=== PATIENT | female | born 1960 | race Caucasian/White ===

== ENCOUNTER → 2016-08-15 | Outpatient (CLI) | payer MEDICARE, OTHER | LOC: US 14:15 | DX: N39.0 Urinary tract infection, site not specified (principal); N20.0 Calculus of kidney; N27.1 Small kidney, bilateral; N28.89 Other specified disorders of kidney and ureter ==

== ENCOUNTER → 2016-09-07 | Outpatient (CLI) | payer MEDICARE, OTHER | LOC: CT 08:22 | DX: R31.29 Other microscopic hematuria (principal); N20.0 Calculus of kidney; N13.4 Hydroureter; K56.41 Fecal impaction ==

== ENCOUNTER → 2020-04-08 | Outpatient (CLI) | payer MEDICARE, OTHER | LOC: CT 11:00 | DX: E53.8 Deficiency of other specified B group vitamins (principal); G40.909 Epilepsy, unspecified, not intractable, without status epilepticus; Z98.2 Presence of cerebrospinal fluid drainage device; G93.89 Other specified disorders of brain | CPT/HCPCS: 36415; 70450; 82607 ==

== ENCOUNTER 2020-06-11 17:15 | Emergency (ER) | payer MEDICARE, OTHER ==
[2020-06-11 20:58] LABS: HEMOGLOBIN 15.9 gm/dl (12.3-15.3); RED BLOOD COUNT 5.24 M/UL (4.00-5.10); WHITE BLOOD COUNT 8.6 K/UL (4.5-11.0)
[2020-06-11 21:17] LABS: BUN/CREATININE RATIO 23 (0-10)
== END 2020-06-11 23:10 | disposition home or self-care (01) ==
LOC: ER1 17:15
PROVIDERS: Preventive Medicine Occupational Medicine
DX: E86.0 Dehydration (principal); F17.210 Nicotine dependence, cigarettes, uncomplicated
CPT/HCPCS: 71045; 80053; 85025; 99284; J7030

== ENCOUNTER 2020-06-30 10:18 | Emergency (ER) | payer MEDICARE, OTHER ==
[2020-06-30 11:50] LABS: HEMOGLOBIN 15.2 gm/dl (12.3-15.3); RED BLOOD COUNT 5.01 M/UL (4.00-5.10); WHITE BLOOD COUNT 8.2 K/UL (4.5-11.0)
[2020-06-30 12:29] LABS: BUN/CREATININE RATIO 11 (0-10)
== END 2020-06-30 13:55 | disposition home or self-care (01) ==
LOC: ER1 10:18
PROVIDERS: Physician Assistant
DX: E86.0 Dehydration (principal); E87.6 Hypokalemia; Z79.899 Other long term (current) drug therapy
CPT/HCPCS: 51701; 71045; 80053; 81001; 83880; 85025; 87086; 93005; 99284; J7030

== ENCOUNTER 2020-07-09 16:12 | Emergency (ER) | payer MEDICARE, OTHER ==
[2020-07-09 19:05] LABS: HEMOGLOBIN 14.8 gm/dl (12.3-15.3); RED BLOOD COUNT 4.89 M/UL (4.00-5.10); WHITE BLOOD COUNT 7.7 K/UL (4.5-11.0)
[2020-07-09 19:29] LABS: BUN/CREATININE RATIO 11 (0-10)
== END 2020-07-09 20:40 | disposition home or self-care (01) ==
LOC: ER1 16:12
PROVIDERS: Family Medicine
DX: E86.0 Dehydration (principal); E66.01 Morbid (severe) obesity due to excess calories; Z79.899 Other long term (current) drug therapy
CPT/HCPCS: 80053; 82550; 82553; 83735; 83874; 84484; 85025; 99284; J7030